=== PATIENT | female | born 1990 | race Caucasian/White ===

== ENCOUNTER 2021-04-02 07:27 | Outpatient (CLI) | payer OTHER ==
[2021-04-02] MEDS ORDERED: OMNIPAQUE 300 MG/ML, 10ML VIAL ONE (08:00)
== END 2021-04-02 23:59 | disposition home or self-care (01) ==
LOC: RAD 07:27
PROVIDERS: ATTEND Obstetrics & Gynecology
DX: N97.9 Female infertility, unspecified (principal); Q51.3 Bicornate uterus
CPT/HCPCS: 58340; 74740; Q9967